=== PATIENT | male | born 1945 | race Caucasian/White ===

== ENCOUNTER 2021-11-16 14:13 | Inpatient (IN) ==
[2021-11-16] MEDS ORDERED: SODIUM CHLORIDE 0.9% 500 ML IV STA (14:46)
[2021-11-16 15:26] LABS: Basophils % 0.3 % (0.0-0.8); Eosinophils % 0.3 % (0.00-10.9); Hematocrit 27.1 VOL% (42.0-52.0); Hemoglobin 8.7 GM/DL (14.0-18.0); Immature Granulocytes % 0.7 %; Immature Granulocytes Absolute 0.02 #; Lymphocytes # 0.1 10*3/uL (1.4-4.0); Lymphocytes % 2.3 % (21.2-54.2); Mean Corpuscular HGB Conc 32.1 GM/DL (32-36); Mean Corpuscular Volume 87.4 FL (87-102); Mean Platelet Volume 11.1 FL (9.6-12.0); Monocytes % 0.7 % (1.7-12.7); Neutrophils % 95.7 % (38.7-73.9); Platelet Count 108 T/CUMM (130-400); Red Cell Distribution Width 13.9 % (9.3-17.3)
[2021-11-16 15:45] LABS: Alanine Aminotransferase 53 U/L (16-61); Alkaline Phosphatase 144 U/L (45-117); Amylase 36 U/L (25-115); Aspartate Amino Transferase 12 U/L (0-37); Blood Urea Nitrogen 28 MG/DL (7-18); Calcium 8.2 MG/DL (8.5-10.1); Carbon Dioxide 23 MMOL/L (21-32); Chloride 104 MMOL/L (98-107); Glucose 215 MG/DL (74-106); Osmolality,Calculated 279.2 MOS/KG (273-304); Potassium 4.8 MMOL/L (3.5-5.1); Sodium 134 MMOL/L (136-145); Total Protein 6.5 G/DL (6.4-8.2)
[2021-11-16 15:48] LABS: Anisocytosis Slight; Band Neutrophils 1 % (0-10); Hypochromia 1+; Lymphocytes 1 % (20-55); Microcytosis 1+; Total Cells Counted 100
[2021-11-16 15:49] LABS: Platelet Estimate Adequate
[2021-11-16] MEDS ORDERED: MEROPENEM 500 MG in SODIUM CHLORIDE 0.9% 100 ML IV ONE (15:55)
[2021-11-16] MEDS ORDERED: SODIUM CHLORIDE 0.9% 1,000 ML IV STA (15:56)
[2021-11-16] MEDS ORDERED: DEXTROSE 10% 250 ML BAG IV PRN (16:58)
[2021-11-16] MEDS ORDERED: GLUCAGON 1 MG VIAL IM PRN ×2 (16:58)
[2021-11-16] MEDS ORDERED: ONDANSETRON 4 MG/2 ML VIAL IV PRN (16:58)
[2021-11-16] MEDS ORDERED: ACETAMINOPHEN 325 MG TABLET PO PRN (16:58)
[2021-11-16] MEDS: SODIUM CHLORIDE 0.9% 1,000 ML IV SCH (17:49)
[2021-11-16] MEDS ORDERED: VANCOMYCIN INJ 1,000 MG in SODIUM CHLORIDE 0.9% 250 ML IV SCH (18:00)
[2021-11-16 18:08] LABS: Mucus,Urine Occasional /LPF (Occasional); RBC,Urine 2 /HPF (0-4); Squamous Epithelial Cell,Urine Occasional /HPF (0-10)
[2021-11-16 18:09] LABS: Bilirubin,Urine Negative (Negative); Blood, Urine Trace mg/dL (Negative); Glucose,Urine (UA) 500 mg/dL (Negative); Ketones,Urine Negative (Negative); Nitrite,Urine Negative (Negative); Protein,Urine 100 mg/dL (Negative); Urine Appearance Clear (Clear); Urine Color Yellow (Yellow); Urine Urobilinogen 0.2 eU/dL (<2.0); Urine pH 5.5 (4.5-8.0)
[2021-11-16] MEDS: DOCUSATE SODIUM 100 MG CAPSULE PO SCH (20:43)
[2021-11-16] MEDS: APIXABAN 2.5 MG TABLET PO SCH (20:43)
[2021-11-16] MEDS: TAMSULOSIN 0.4 MG CAPSULE PO SCH (20:43)
[2021-11-16] MEDS: INSULIN LISPRO 100 UNIT/ML SUBCUT SCH (21:50)
[2021-11-16] MEDS: INSULIN GLARGINE 100 UNIT/ML SUBCUT SCH (21:51)
[2021-11-16] MEDS: [UNRECOGNIZED DRUG - OTHER] PO SCH (21:52)
[2021-11-16] MEDS: LIPASE PROTEASE AMYLASE PO SCH (21:52)
[2021-11-16] MEDS: PIPERACILLIN/TAZOBACTAM 3,375 MG in SODIUM CHLORIDE 0.9% 100 ML IV SCH (23:44)
[2021-11-17 05:55] LABS: Albumin 2.1 G/DL (3.4-5.0); Calcium 7.7 MG/DL (8.5-10.1); Potassium 4.2 MMOL/L (3.5-5.1)
[2021-11-17 06:57] LABS: Basophils % 0.6 % (0.0-0.8); Hematocrit 21.5 VOL% (42.0-52.0); Immature Granulocytes Absolute 0.07 #; Lymphocytes # 0.3 10*3/uL (1.4-4.0); Lymphocytes % 8.7 % (21.2-54.2); Mean Corpuscular HGB Conc 32.6 GM/DL (32-36); Mean Corpuscular Volume 87.8 FL (87-102); Mean Platelet Volume 11.4 FL (9.6-12.0); Monocytes # 0.2 10*3/uL (0.11-0.8); Monocytes % 4.8 % (1.7-12.7); Neutrophils % 83.9 % (38.7-73.9); Red Blood Count 2.45 MC/CUMM (3.8-5.5); White Blood Count 3.6 T/CUMM (4-12)
[2021-11-17 06:59] LABS: Platelet Count 92 T/CUMM (130-400)
[2021-11-17 07:21] LABS: Band Neutrophils 1 % (0-10); Hypochromia 1+; Lymphocytes 12 % (20-55); Microcytosis 1+; Platelet Estimate Decreased; Total Cells Counted 100
[2021-11-17] MEDS: LINACLOTIDE 145 MCG CAPSULE PO SCH (08:07)
[2021-11-17] MEDS: INSULIN LISPRO 100 UNIT/ML SUBCUT SCH ×4 (08:16→21:17)
[2021-11-17] MEDS ORDERED: SODIUM CHLORIDE 0.9% 1,000 ML IV PRN (08:38)
[2021-11-17] MEDS: APIXABAN 2.5 MG TABLET PO SCH ×2 (08:39→21:08)
[2021-11-17] MEDS: DOCUSATE SODIUM 100 MG CAPSULE PO SCH ×2 (08:39→21:08)
[2021-11-17] MEDS: PIPERACILLIN/TAZOBACTAM 3,375 MG in SODIUM CHLORIDE 0.9% 100 ML IV SCH ×3 (08:39→23:57)
[2021-11-17] MEDS: POLYETHYLENE GLYCOL POWDER 17 GM PACK PO SCH (08:39)
[2021-11-17] MEDS: [UNRECOGNIZED DRUG - OTHER] PO SCH ×3 (08:44→21:10)
[2021-11-17] MEDS: LIPASE PROTEASE AMYLASE PO SCH ×3 (08:44→21:10)
[2021-11-17 09:02] LABS: % Iron Saturation 3.8 % (18-50); Ferritin 188.5 ng/mL (26-388)
[2021-11-17 09:04] LABS: Folate 8.96 NG/ML (5.38-24.0)
[2021-11-17] MEDS: CYANOCOBALAMIN 500 MCG TABLET PO SCH (11:25)
[2021-11-17] MEDS: SODIUM CHLORIDE 0.9% 1,000 ML IV SCH (15:27)
[2021-11-17] MEDS: FERROUS SULFATE 325 MG TABLET PO SCH (21:07)
[2021-11-17] MEDS: TAMSULOSIN 0.4 MG CAPSULE PO SCH (21:08)
[2021-11-17] MEDS: INSULIN GLARGINE 100 UNIT/ML SUBCUT SCH (21:16)
[2021-11-18 05:52] LABS: Hematocrit 22.9 VOL% (42.0-52.0); Hemoglobin 7.6 GM/DL (14.0-18.0); Immature Granulocytes % 0.3 %; Immature Granulocytes Absolute 0.01 #; Lymphocytes # 0.3 10*3/uL (1.4-4.0); Lymphocytes % 10.6 % (21.2-54.2); Mean Corpuscular HGB Conc 33.2 GM/DL (32-36); Mean Corpuscular Volume 88.4 FL (87-102); Mean Platelet Volume 11.9 FL (9.6-12.0); Monocytes # 0.2 10*3/uL (0.11-0.8); Monocytes % 7.2 % (1.7-12.7); Neutrophils % 81.9 % (38.7-73.9); Platelet Count 69 T/CUMM (130-400); Red Blood Count 2.59 MC/CUMM (3.8-5.5); Red Cell Distribution Width 15.2 % (9.3-17.3); White Blood Count 2.9 T/CUMM (4-12)
[2021-11-18 06:11] LABS: Calcium 7.7 MG/DL (8.5-10.1); Osmolality,Calculated 278.8 MOS/KG (273-304); Potassium 3.6 MMOL/L (3.5-5.1)
[2021-11-18 06:14] LABS: Platelet Estimate Decreased
[2021-11-18] MEDS: INSULIN LISPRO 100 UNIT/ML SUBCUT SCH ×4 (07:45→22:08)
[2021-11-18] MEDS: POLYETHYLENE GLYCOL POWDER 17 GM PACK PO SCH (08:29)
[2021-11-18] MEDS: PIPERACILLIN/TAZOBACTAM 3,375 MG in SODIUM CHLORIDE 0.9% 100 ML IV SCH (08:36)
[2021-11-18] MEDS: FERROUS SULFATE 325 MG TABLET PO SCH ×2 (08:38→22:07)
[2021-11-18] MEDS: DOCUSATE SODIUM 100 MG CAPSULE PO SCH ×2 (08:38→22:07)
[2021-11-18] MEDS: CYANOCOBALAMIN 500 MCG TABLET PO SCH (08:38)
[2021-11-18] MEDS: APIXABAN 2.5 MG TABLET PO SCH ×2 (08:38→22:07)
[2021-11-18] MEDS: LINACLOTIDE 145 MCG CAPSULE PO SCH (08:39)
[2021-11-18] MEDS: LIPASE PROTEASE AMYLASE PO SCH ×3 (08:41→23:21)
[2021-11-18] MEDS: [UNRECOGNIZED DRUG - OTHER] PO SCH ×3 (08:41→23:21)
[2021-11-18] MEDS: SODIUM CHLORIDE 0.9% 1,000 ML IV SCH ×2 (08:46→11:09)
[2021-11-18] MEDS: MEROPENEM 500 MG in SODIUM CHLORIDE 0.9% 100 ML IV SCH ×2 (12:12→17:01)
[2021-11-18] MEDS: TAMSULOSIN 0.4 MG CAPSULE PO SCH (22:07)
[2021-11-18] MEDS: INSULIN GLARGINE 100 UNIT/ML SUBCUT SCH (22:08)
[2021-11-19] MEDS: MEROPENEM 500 MG in SODIUM CHLORIDE 0.9% 100 ML IV SCH ×3 (01:19→12:25)
[2021-11-19] MEDS: SODIUM CHLORIDE 0.9% 1,000 ML IV SCH ×2 (02:22→17:39)
[2021-11-19 05:09] LABS: Basophils % 0.8 % (0.0-0.8); Eosinophils % 0.8 % (0.00-10.9); Hematocrit 23.6 VOL% (42.0-52.0); Hemoglobin 7.6 GM/DL (14.0-18.0); Immature Granulocytes % 0.8 %; Immature Granulocytes Absolute 0.02 #; Lymphocytes # 0.6 10*3/uL (1.4-4.0); Lymphocytes % 22.7 % (21.2-54.2); Mean Corpuscular HGB Conc 32.2 GM/DL (32-36); Mean Corpuscular Volume 90.4 FL (87-102); Mean Platelet Volume 11.1 FL (9.6-12.0); Monocytes # 0.3 10*3/uL (0.11-0.8); Monocytes % 11.6 % (1.7-12.7); Neutrophils % 63.3 % (38.7-73.9); Platelet Count 62 T/CUMM (130-400); Red Blood Count 2.61 MC/CUMM (3.8-5.5); Red Cell Distribution Width 15.3 % (9.3-17.3); White Blood Count 2.5 T/CUMM (4-12)
[2021-11-19 05:25] LABS: Calcium 8.2 MG/DL (8.5-10.1); Osmolality,Calculated 278.5 MOS/KG (273-304); Potassium 3.5 MMOL/L (3.5-5.1)
[2021-11-19 05:35] LABS: Hypochromia Slight; Microcytosis Slight; Platelet Estimate Decreased
[2021-11-19] MEDS: INSULIN LISPRO 100 UNIT/ML SUBCUT SCH ×4 (08:25→21:31)
[2021-11-19] MEDS: CYANOCOBALAMIN 500 MCG TABLET PO SCH (08:26)
[2021-11-19] MEDS: APIXABAN 2.5 MG TABLET PO SCH ×2 (08:26→21:31)
[2021-11-19] MEDS: LINACLOTIDE 145 MCG CAPSULE PO SCH (08:26)
[2021-11-19] MEDS: POLYETHYLENE GLYCOL POWDER 17 GM PACK PO SCH (08:26)
[2021-11-19] MEDS: DOCUSATE SODIUM 100 MG CAPSULE PO SCH (08:26)
[2021-11-19] MEDS: FERROUS SULFATE 325 MG TABLET PO SCH (08:26)
[2021-11-19] MEDS: LIPASE PROTEASE AMYLASE PO SCH ×3 (08:27→21:20)
[2021-11-19] MEDS: [UNRECOGNIZED DRUG - OTHER] PO SCH ×3 (08:27→21:20)
[2021-11-19] MEDS: FILGRASTIM-SNDZ 300 MCG/0.5 ML SYRINGE SUBCUT SCH (10:42)
[2021-11-19] MEDS: cefTRIAXone 1,000 MG in SODIUM CHLORIDE 0.9% 100 ML IV SCH (15:51)
[2021-11-19] MEDS: INSULIN GLARGINE 100 UNIT/ML SUBCUT SCH (21:31)
[2021-11-19] MEDS: TAMSULOSIN 0.4 MG CAPSULE PO SCH (21:31)
[2021-11-20 06:08] LABS: Basophils % 0.2 % (0.0-0.8); Eosinophils # 0.1 10*3/uL (0.0-0.87); Eosinophils % 0.9 % (0.00-10.9); Hematocrit 23.2 VOL% (42.0-52.0); Hemoglobin 7.5 GM/DL (14.0-18.0); Immature Granulocytes % 0.4 %; Immature Granulocytes Absolute 0.06 #; Lymphocytes % 6.7 % (21.2-54.2); Mean Corpuscular HGB Conc 32.3 GM/DL (32-36); Mean Corpuscular Volume 90.3 FL (87-102); Mean Platelet Volume 11.3 FL (9.6-12.0); Monocytes # 0.9 10*3/uL (0.11-0.8); Monocytes % 6.5 % (1.7-12.7); Neutrophils % 85.3 % (38.7-73.9); Platelet Count 96 T/CUMM (130-400); Red Blood Count 2.57 MC/CUMM (3.8-5.5); Red Cell Distribution Width 15.6 % (9.3-17.3); White Blood Count 14.4 T/CUMM (4-12)
[2021-11-20 06:24] LABS: Calcium 7.9 MG/DL (8.5-10.1); Osmolality,Calculated 282.1 MOS/KG (273-304); Potassium 3.7 MMOL/L (3.5-5.1)
[2021-11-20 06:33] LABS: Eosinophils 3 % (0-10); Hypochromia Slight; Lymphocytes 5 % (20-55); Microcytosis Slight; Platelet Estimate Decreased; Total Cells Counted 100
[2021-11-20] MEDS: SODIUM CHLORIDE 0.9% 1,000 ML IV SCH (07:39)
[2021-11-20] MEDS: INSULIN LISPRO 100 UNIT/ML SUBCUT SCH ×4 (07:40→21:18)
[2021-11-20] MEDS: FERROUS SULFATE 325 MG TABLET PO SCH (08:21)
[2021-11-20] MEDS: CYANOCOBALAMIN 500 MCG TABLET PO SCH (08:21)
[2021-11-20] MEDS: APIXABAN 2.5 MG TABLET PO SCH ×2 (08:21→21:17)
[2021-11-20] MEDS: LINACLOTIDE 145 MCG CAPSULE PO SCH (08:22)
[2021-11-20] MEDS: [UNRECOGNIZED DRUG - OTHER] PO SCH ×3 (08:22→22:42)
[2021-11-20] MEDS: FILGRASTIM-SNDZ 300 MCG/0.5 ML SYRINGE SUBCUT SCH (08:22)
[2021-11-20] MEDS: LIPASE PROTEASE AMYLASE PO SCH ×3 (08:22→22:42)
[2021-11-20] MEDS: cefTRIAXone 1,000 MG in SODIUM CHLORIDE 0.9% 100 ML IV SCH (15:35)
[2021-11-20] MEDS: TAMSULOSIN 0.4 MG CAPSULE PO SCH (21:17)
[2021-11-20] MEDS: INSULIN GLARGINE 100 UNIT/ML SUBCUT SCH (21:18)
[2021-11-21 05:19] LABS: Basophils # 0.1 10*3/uL (0.0-0.2); Basophils % 0.2 % (0.0-0.8); Eosinophils # 0.2 10*3/uL (0.0-0.87); Eosinophils % 0.9 % (0.00-10.9); Hematocrit 24.2 VOL% (42.0-52.0); Hemoglobin 7.7 GM/DL (14.0-18.0); Immature Granulocytes % 6.5 %; Immature Granulocytes Absolute 1.57 #; Lymphocytes # 1.6 10*3/uL (1.4-4.0); Lymphocytes % 6.5 % (21.2-54.2); Mean Corpuscular HGB Conc 31.8 GM/DL (32-36); Mean Platelet Volume 10.5 FL (9.6-12.0); Monocytes # 1.2 10*3/uL (0.11-0.8); Monocytes % 4.8 % (1.7-12.7); NRBC # 0.02 10*3/uL; Neutrophils % 81.1 % (38.7-73.9); Platelet Count 129 T/CUMM (130-400); Red Blood Count 2.66 MC/CUMM (3.8-5.5); Red Cell Distribution Width 15.6 % (9.3-17.3); White Blood Count 24.3 T/CUMM (4-12)
[2021-11-21 05:35] LABS: Calcium 8.4 MG/DL (8.5-10.1)
[2021-11-21 06:05] LABS: Band Neutrophils 1 % (0-10); Eosinophils 1 % (0-10); Hypochromia Slight; Lymphocytes 2 % (20-55); Microcytosis Slight; Total Cells Counted 100
[2021-11-21 06:06] LABS: Platelet Estimate Normal
[2021-11-21] MEDS ORDERED: LEVOFLOXACIN 500 MG TABLET PO SCH (09:00)
[2021-11-21] MEDS: INSULIN LISPRO 100 UNIT/ML SUBCUT SCH ×2 (09:07→11:45)
[2021-11-21] MEDS: LINACLOTIDE 145 MCG CAPSULE PO SCH (09:10)
[2021-11-21] MEDS: FERROUS SULFATE 325 MG TABLET PO SCH (09:10)
[2021-11-21] MEDS: CYANOCOBALAMIN 500 MCG TABLET PO SCH (09:11)
[2021-11-21] MEDS: APIXABAN 2.5 MG TABLET PO SCH (09:11)
[2021-11-21] MEDS: [UNRECOGNIZED DRUG - OTHER] PO SCH (09:12)
[2021-11-21] MEDS: LIPASE PROTEASE AMYLASE PO SCH (09:12)
[2021-11-21 12:07] VITALS: BP 119/77
== END 2021-11-21 15:30 | disposition home or self-care (01) | DRG 193 ==
LOC: EDUNIT# → EDBD → N.ED 14:13 → N.EDINP 16:58 → N.TELES 18:43
PROVIDERS: ADMIT Hospitalist; ATTEND Hospitalist